=== PATIENT | female | born 1995 | race Caucasian/White ===

== ENCOUNTER 2017-03-05 09:00 | Emergency (ER) | payer BC ==
[~2017-03-05] VITALS: Ht 165.1 cm; Wt 79.6 kg
[~2017-03-05 09:00] MED LIST: ABL/5 PO; ALBUAER2 INH; ATV/1 PO; ESCI1TAB10 PO; METF-383 PO; OMEP40CA41 PO; POLY335040 PO
[2017-03-05 09:04] VITALS: TEMP 37.3; Ht 165.1 cm; Wt 79.6 kg
[2017-03-05] MEDS ORDERED: KETOROLAC TROMETHAMINE 30 MG/ML VIAL IV STA (09:36)
[2017-03-05] MEDS ORDERED: ONDANSETRON INJ 2 MG/ML 2 ML VIAL IV STA (09:36)
[2017-03-05] MEDS ORDERED: SODIUM CHLORIDE 0.9% 500ML 500 ML IV STA (09:36)
[2017-03-05 09:56] LABS: BASO % 1.1 %; BASO ABS # 0.06 K/uL (0-0.2); COMPLETE YES; EOS % 3.2 %; HEMATOCRIT 38.5 % (37-47); IG% 0.2 %; LYMPH % 33.7 %; LYMPH ABS # 1.78 K/uL (1.2-3.4); MEAN CELL VOLUME 73.1 fL (80-100); MEAN CORPUSCULAR HGB CONC 31.4 g/dl (32-36); MEAN PLATELET VOLUME 10.6 fL (7.4-10.4); MONO % 11.4 %; NEUT % 50.4 %; PLATELET COUNT 209 K/uL (130-400); RED BLOOD COUNT 5.27 M/uL (4.2-5.4); WHITE BLOOD COUNT 5.28 K/uL (4.8-10.8)
[2017-03-05] MEDS ORDERED: OPTIRAY 320 IV PRN (10:00)
[2017-03-05 10:05] LABS: URINE APPEARANCE TURBID (CLEAR); URINE BILIRUBIN NEG (NEG); URINE COLOR DK YELLOW; URINE EPITHELIAL CELL AUTO >30 /lpf (0-5); URINE NITRITE NEG (NEG); URINE PH 5.5 (4.5-7.5); UROBILINOGEN NEG (NEG); ZZUR CULT IF INDIC CLEAN CATCH YES
[2017-03-05 10:06] LABS: MANUAL MICROSCOPIC REQUIRED? NO; REVIEW REQ? YES
[2017-03-05] MEDS ORDERED: VNTHFA/IN INH (10:07)
[2017-03-05] MEDS ORDERED: ACET-1256 PO (10:07)
[2017-03-05] MEDS ORDERED: CHOL1000 PO (10:07)
[2017-03-05 10:13] LABS: ALT/SGPT 17 U/L (12-78); AST/SGOT 17 U/L (15-37); BLOOD UREA NITROGEN 10 mg/dl (7-18); BUN/CREATININE RATIO 12.3 (10-20); CALCIUM 8.7 mg/dl (8.5-10.1); CARBON DIOXIDE 24 mmol/L (21-32); CHLORIDE 108 mmol/L (98-107); CREATININE 0.79 mg/dl (0.60-1.20); GLUCOSE 98 mg/dl (70-99); POTASSIUM 3.9 mmol/L (3.5-5.1); SODIUM 139 mmol/L (136-145)
[2017-03-05 10:16] LABS: ALKALINE PHOSPHATASE 97 U/L (45-117)
[2017-03-05] MEDS ORDERED: HYDROmorphone INJ 0.5 MG/0.5 ML SYR IV STA (10:32)
--- NOTE | 2017-03-05 12:13 | DIAGNOSTIC IMAGING REPORT ---
ABD/PELVIS IV CONTRAST ONLY HISTORY: 21 years-old Female lower abd pain w/ iud acute lower abdominal pain with intrauterine device. COMPARISON: CT abdomen and pelvis 09/13/2006 TECHNIQUE: Multiple axial CT images of the abdomen and pelvis were obtained following the intravenous administration of 121 mL Optiray 320. A dose lowering technique was used consistent with the principals of JAMES. FINDINGS: There is mild subsegmental dependent bibasilar atelectasis. No pneumoperitoneum identified. Imaged inferior cardiac chambers are within normal limits in size. The liver, spleen, pancreas, gallbladder and adrenal glands are within normal limits. Common bile duct is mildly dilated at 7 mm without obstructing stone or lesion identified. There is also suggested mild intrahepatic biliary ductal dilation. Kidneys, ureters and urinary bladder are unremarkable. There is an intrauterine device present which appears malpositioned with the T portion projected in an oblique anterior to posterior projection suggesting possible intramural location within the uterine body anteriorly anteriorly as seen on image 351 of series 3. Trace fluid is seen within the endocervical canal. Follicular changes of the ovaries without definite adnexal mass lesion. Abdominal aorta is normal in course and caliber. No bulky adenopathy. There is no bowel obstruction or focal bowel wall thickening identified. Normal appendix. Soft tissues are unremarkable. Bones appear intact. IMPRESSION: 1. Rotated intrauterine device with possible intramural extension into the anterior uterine body as above. Correlate with clinical exam and pelvic ultrasound if clinically indicated. 2. Mild common bile duct dilation of 7 mm is present in conjunction with mild intrahepatic biliary ductal dilation. No obstructing stone or lesion identified. Correlate with biliary function laboratory analysis. 3. Normal appendix. The above report was generated using voice recognition software. It may contain grammatical, syntax or spelling errors. Electronically signed by: Anthony Bullock M.D. 03/05/2017 12:11 PM Dictated Date/Time: 03/05/2017 12:03 PM
[2017-03-05] MEDS ORDERED: LORAZEPAM 1 MG TAB SL STA (12:57)
[2017-03-05 14:07] VITALS: BP 131/76; PULSE 66; O2SAT 96
--- NOTE | 2017-03-05 16:17 | EMERGENCY ROOM VISIT NOTE ---
History Report prepared by Unruly: David Diaz Under the Supervision of: Dr. Jerzy David D.O. First contact with patient: 09:24 Chief Complaint: ABDOMINAL PAIN Stated Complaint: SEVERE ABD PAIN/R LEG NUMB History of Present Illness The patient is a 21 year old female who presents to the Emergency Room with complaints of waxing and waning lower abdominal pain beginning two hours ago. Her pain is worse on the right. She has a history of similar symptoms when she had an IUD placed a few years ago. The patient had an IUD removed and a new one placed last month. She states that she spoke with her [employer] PANELBOARD OPERATOR today about her symptoms who referred her to the ED. She also complains of right leg pain, numbness and tingling. The patient denies urinary symptoms, groin numbness, diarrhea, loss of bowel or bladder continence, or abnormal back pain. Her last normal bowel movement was yesterday. Her LNMP was two weeks ago. The patient notes that she has had some pain in her tailbone for the past several weeks, but this has not changed recently. She denies any recent travel, or surgeries. She has no history of blood clots. Source of History: patient Onset: Two hours ago Position: abdomen (lower, worse on the right) Timing: waxes/wanes Associated Symptoms: No back pain (abnormal), No diarrhea, No urinary symptoms Note: The patient also complains of right leg pain, numbness and tingling. The patient denies groin numbness, or loss of bowel or bladder continence. Review of Systems See HPI for pertinent positives & negatives. A total of 10 systems reviewed and were otherwise negative. Past Medical & Surgical Medical Problems: (1) Depression (2) NARCOLEPSY, WITHOUT CATAPLEXY Family History FH: migraines Social History Smoking Status: Current Every Day Smoker Marital Status: single Housing Status: lives with family Occupation Status: student Current/Historical Medications Scheduled Aripiprazole (Abilify), 7.5 MG PO DAILY Cholecalciferol (Vitamin D3), 1,000 UNITS PO DAILY Escitalopram Oxalate (Lexapro), 20 MG PO DAILY Omeprazole (Prilosec), 40 MG PO DAILY Scheduled PRN Acetaminophen (Tylenol), 1,000 MG PO UD PRN for Pain Albuterol Hfa (Ventolin Hfa), 2 PUFFS INH Q4 PRN for SOB/Wheezing Lorazepam (Ativan), 1 MG PO BID PRN for Anxiety Allergies Coded Allergies: Cephalexin (Verified Allergy, Mild, HIVES, 03/05/17) Morphine (Verified Allergy, Mild, HIVES, 03/05/17) WHEN GETTING IN THE ER, PT'S ARM STARTED TO TURN RED. Penicillins (Verified Allergy, Mild, HIVES, 03/05/17) Physical Exam Vital Signs Date Time Temp Pulse Resp B/P (MAP) Pulse Ox O2 Delivery O2 Flow Rate FiO2 03/05/17 14:07 66 16 131/76 96 03/05/17 13:12 66 16 131/76 96 Room Air 03/05/17 10:32 67 16 113/75 97 Room Air 03/05/17 09:04 37.3 81 18 121/78 97 Room Air Physical Exam GENERAL: Sitting up in bed, holding lower abdomen, minimal distress. EYE EXAM: normal conjunctiva. OROPHARYNX: no exudate, no erythema, lips, buccal mucosa, and tongue normal and mucous membranes are moist NECK: supple, no nuchal rigidity, no adenopathy, non-tender LUNGS: Clear to auscultation. Normal chest wall mechanics HEART: no murmurs, S1 normal and S2 normal ABDOMEN: abdomen soft, normo-active bowel sounds, no masses, no rebound or guarding. Minimal infraumbilical tenderness to palpation. BACK: Back is symmetrical on inspection and there is no deformity, no midline tenderness, no CVA tenderness. SKIN: no rashes and no bruising PELVIC: deferred to WEIGHBRIDGE OPERATOR UPPER EXTREMITIES: upper extremities are grossly normal. LOWER EXTREMITIES: No pitting edema. Flexion and extension of the hip, knee, ankles and EHL 5/5 bilaterally. Patellar and Achilles reflexes intact. DPs 2/4 bilaterally. NEURO EXAM: Normal sensorium, cranial nerves II-XII grossly intact, normal speech, no gross weakness of arms, no gross weakness of legs. Medical Decision & Procedures ER Provider Diagnostic Interpretation: CT:Per my review, radiologist interpretation. ABD/PELVIS IV CONTRAST ONLY FINDINGS: There is mild subsegmental dependent bibasilar atelectasis. No pneumoperitoneum identified. Imaged inferior cardiac chambers are within normal limits in size. The liver, spleen, pancreas, gallbladder and adrenal glands are within normal limits. Common bile duct is mildly dilated at 7 mm without obstructing stone or lesion identified. There is also suggested mild intrahepatic biliary ductal dilation. Kidneys, ureters and urinary bladder are unremarkable. There is an intrauterine device present which appears malpositioned with the T portion projected in an oblique anterior to posterior projection suggesting possible intramural location within the uterine body anteriorly anteriorly as seen on image 351 of series 3. Trace fluid is seen within the endocervical canal. Follicular changes of the ovaries without definite adnexal mass lesion. Abdominal aorta is normal in course and caliber. No bulky adenopathy. There is no bowel obstruction or focal bowel wall thickening identified. Normal appendix. Soft tissues are unremarkable. Bones appear intact. IMPRESSION: 1. Rotated intrauterine device with possible intramural extension into the anterior uterine body as above. Correlate with clinical exam and pelvic ultrasound if clinically indicated. 2. Mild common bile duct dilation of 7 mm is present in conjunction with mild intrahepatic biliary ductal dilation. No obstructing stone or lesion identified. Correlate with biliary function laboratory analysis. 3. Normal appendix. The above report was generated using voice recognition software. It may contain grammatical, syntax or spelling errors. Electronically signed by: Anthony Bullock M.D. 03/05/2017 12:11 PM Laboratory Results 03/05/17 09:42 Red Blood Count 5.27, Mean Corpuscular Volume 73.1, Mean Corpuscular Hemoglobin 23.0, Mean Corpuscular Hemoglobin Concent 31.4, Mean Platelet Volume 10.6, Neutrophils (%) (Auto) 50.4, Lymphocytes (%) (Auto) 33.7, Monocytes (%) (Auto) 11.4, Eosinophils (%) (Auto) 3.2, Basophils (%) (Auto) 1.1, Neutrophils # (Auto ) 2.66, Lymphocytes # (Auto) 1.78, Monocytes # (Auto) 0.60, Eosinophils # (Auto ) 0.17, Basophils # (Auto) 0.06 03/05/17 09:42 Test 03/05/17 09:27 03/05/17 09:42 Urine Color DK YELLOW Urine Appearance TURBID (CLEAR) Urine pH 5.5 (4.5-7.5) Urine Specific Jackson 1.030 (1.000-1.030) Urine Protein 2+ (NEG) Urine Glucose (UA) NEG (NEG) Urine Ketones TRACE (NEG) Urine Occult Blood 3+ (NEG) Urine Nitrite NEG (NEG) Urine Bilirubin NEG (NEG) Urine Urobilinogen NEG (NEG) Urine Leukocyte Esterase SMALL (NEG) Urine WBC (Auto) >30 /hpf (0-5) Urine RBC (Auto) >30 /hpf (0-4) Urine Hyaline Casts (Auto) 1-5 /lpf (0-5) Urine Epithelial Cells (Auto) >30 /lpf (0-5) Urine Bacteria (Auto) 2+ (NEG) Urine Pathogenic Casts /lpf (0) Urine Test NEG (NEG) White Blood Count 5.28 K/uL (4.8-10.8) Red Blood Count 5.27 M/uL (4.2-5.4) Hemoglobin 12.1 g/dL (12.0-16.0) Hematocrit 38.5 % (37-47) Mean Corpuscular Volume 73.1 fL (80-100) Mean Corpuscular Hemoglobin 23.0 pg (25-34) Mean Corpuscular Hemoglobin Concent 31.4 g/dl (32-36) Platelet Count 209 K/uL (130-400) Mean Platelet Volume 10.6 fL (7.4-10.4) Neutrophils (%) (Auto) 50.4 % Lymphocytes (%) (Auto) 33.7 % Monocytes (%) (Auto) 11.4 % Eosinophils (%) (Auto) 3.2 % Basophils (%) (Auto) 1.1 % Neutrophils # (Auto) 2.66 K/uL (1.4-6.5) Lymphocytes # (Auto) 1.78 K/uL (1.2-3.4) Monocytes # (Auto) 0.60 K/uL (0.11-0.59) Eosinophils # (Auto) 0.17 K/uL (0-0.5) Basophils # (Auto) 0.06 K/uL (0-0.2) RDW Standard Deviation 42.3 fL (36.4-46.3) RDW Coefficient of Variation 15.9 % (11.5-14.5) Immature Granulocyte % (Auto) 0.2 % Immature Granulocyte # (Auto) 0.01 K/uL (0.00-0.02) Anion Gap 7.0 mmol/L (3-11) Est Creatinine Clear Calc Drug Dose 119.4 ml/min Estimated GFR () 125.8 Estimated GFR (Non- 108.5 BUN/Creatinine Ratio 12.3 (10-20) Calcium Level 8.7 mg/dl (8.5-10.1) Total Bilirubin 0.2 mg/dl (0.2-1) Direct Bilirubin < 0.1 mg/dl (0-0.2) Aspartate Amino Transf (AST/SGOT) 17 U/L (15-37) Alanine Aminotransferase (ALT/SGPT) 17 U/L (12-78) Alkaline Phosphatase 97 U/L (45-117) Total Protein 7.5 gm/dl (6.4-8.2) Albumin 3.5 gm/dl (3.4-5.0) Lipase 105 U/L (73-393) Laboratory results per my review. Medications Administered Medications (Trade) Dose Ordered Sig/Ryan Route Start Time Stop Time Status Last Admin Dose Admin Sodium Chloride 500 ml @ 999 mls/hr Q31M STAT IV 03/05/17 09:36 03/05/17 10:06 DC 03/05/17 09:52 999 MLS/HR Ketorolac Tromethamine (Toradol Inj) 30 mg NOW STAT IV 03/05/17 09:36 03/05/17 09:37 DC 03/05/17 09:50 30 MG Ondansetron HCl (Zofran Inj) 4 mg NOW STAT IV 03/05/17 09:36 03/05/17 09:37 DC 03/05/17 09:49 4 MG Hydromorphone HCl (Dilaudid Inj) 0.5 mg NOW STAT IV 03/05/17 10:32 03/05/17 10:33 DC 03/05/17 10:38 0.5 MG Lorazepam (Ativan Tab) 1 mg NOW STAT SL 03/05/17 12:57 03/05/17 12:58 DC 03/05/17 13:05 1 MG ED Course ED COURSE: Vital signs were reviewed and appeared normal The patients medical record was reviewed The above diagnostic studies were performed and reviewed. ED treatments and interventions as stated above. 0927: The patient was evaluated in room B8. A complete history and physical examination was performed. 0936: Ordered Zofran Inj 4 mg IV, Toradol Inj 30 mg IV, Sodium Chloride 500 ml @ 999 mls/hr IV. 1032: Ordered Dilaudid Inj 0.5 mg IV. 1130: I reassessed the patient. She is much more comfortable. 1257: Ordered Ativan Tab 1 mg SL. 1348: Upon reevaluation, the patient is resting comfortably. She would like to leave before her US. I discussed my findings with the patient and she understands and agrees with the treatment plan. Based on the patients age, coexisting illnesses, exam and lab findings the decision to treat as an outpatient was made. The patient remained stable while under my care. The patient appeared well at the time of discharge. Medical Decision Differential diagnoses includes but is not limited to gastritis, peptic ulcer disease, GERD, gallbladder disease, pancreatitis, small bowel obstruction, acute coronary syndrome, pericarditis, ischemic bowel, irritable bowel disease, irritable bowel syndrome, appendicitis, diverticulitis, malignancy, hernia, urinary tract infection, torsion, /ectopic , perforation, trauma, infectious. Patient is a 21-year-old female who presents to ER for bilateral lower abdominal cramping which has been coming going. She had an IUD placed and removed previously at the end of January. She follows with [facility] washer machine. Vitals are unremarkable. CBC all BMP, LFTs, bilirubin are all unremarkable. is negative. UA was contaminated with multiple epithelial cells. She has no urinary complaints. Will send for culture. Patient was evaluated by WEIGHBRIDGE OPERATOR following a CT of the abdomen and pelvis which shows an IUD possibly in all of uterus. Discussed with WEIGHBRIDGE OPERATOR attending who placed the IUD and he notes he was placed in the OR. He recommended ultrasound the patient shortly thereafter requested to leave. I informed them of the risk and benefits. I stressed the importance that the IUD could be in the uterine wall which could possibly perforate this was the case. They did understand and were able to explain this back to me. They understood. Mom is a nurse. Patient was discharged following informed refusal of care. Discussed with Pt concerning signs and symptoms to watch out for. Pt was instructed to follow up with their PCP and discussed with the patient their option to return to the ED at anytime for persistent or worsening symptoms. The appropriate anticipatory guidance and out- patient management, including indications for return to the emergency department , were explained at length to the patient and understood. Medication Reconcilliation Current Medication List: was personally reviewed by me Blood Pressure Screening Patient's blood pressure: Normal blood pressure Blood pressure disposition: Did not require urgent referral Consults Time Called: 1220 Consulting Physician: Dr. Oracio BETTENCOURT Returned Call: 1228 I reviewed the patient's case with Dr. Narayanan. He will come see the patient. Impression Primary Impression: Lower abdominal pain Scribe Attestation The scribe's documentation has been prepared under my direction and personally reviewed by me in its entirety. I confirm that the note above accurately reflects all work, treatment, procedures, and medical decision making performed by me. Departure Information Dispostion Home / Self-Care Referrals Chandra Oropeza III, M.D. (PCP) Forms HOME CARE DOCUMENTATION FORM, IMPORTANT VISIT INFORMATION Patient Instructions ED Abdominal Pain Unkn Cause, My [facility] Additional Instructions Please follow up with your primary care doctor and WEIGHBRIDGE OPERATOR with in the next 24 hours. Any worsening of your symptoms, please return to the ED immediately. This includes any fevers greater than 100.4, worsening pain, chest pain, shortness breath, persistent nausea, vomiting, unable to eat or drink, or any other concerning signs or symptoms from your standpoint.
--- NOTE | 2017-03-05 19:20 | GYNECOLOGICAL CONSULTATION ---
DATE OF CONSULTATION: 03/05/2017 Consult is placed by Dr. David from the ER. HISTORY OF PRESENT ILLNESS: This is a 21-year-old G0 who presented to the Emergency Room with lower abdominal pain, pain started this morning and pain radiated to her right leg. Her right leg felt numb, so she called the [employer] RUNNER COMPOUNDER office and was asked to come to the Emergency Room for evaluation. The patient had had an IUD placed under hysteroscopic guidance 6 weeks ago during a D&C hysteroscopy and removal of her previous IUD that was uncomfortable to be removed in the office. The patient has had no pain, or problems or discomfort since IUD placement 6 weeks ago. This pain was sudden and came on this morning. The patient was seen in the Emergency Room and a CT scan ordered. The CT scan showed the IUD in the uterus. The IUD appeared rotated with possible intramural extension to the anterior body. An ultrasound for followup was recommended by the radiologist who read the IUD. I was called to see the patient. On arrival to the patient's room, she was comfortably resting in bed. She appeared to be in no acute pain. She told me her pain had improved. At the time I evaluated her, she ranked her pain 2/10. She had no hematuria. She had no vaginal discharge. The numbness in her right leg has completely resolved. PAST MEDICAL HISTORY: 1. The patient has history of depression. 2. The patient has anxiety. 3. The patient has a history of narcolepsy. PAST SURGICAL HISTORY: D&C. SOCIAL HISTORY: The patient denies tobacco, drug or alcohol use. MEDICATIONS: The patient is on Abilify, vitamin D3, Lexapro and Prilosec. She is also on Ativan p.r.n. ALLERGIES: THE PATIENT IS ALLERGIC TO CEPHALEXIN, MORPHINE AND PENICILLIN. PHYSICAL EXAMINATION: GENERAL: Well-developed, well-nourished white female resting comfortably in bed. VITAL SIGNS: Temperature is 37.3, pulse is 81, respirations 18, blood pressure is 121/78. HEART: S1, S2, regular rhythm and rate. LUNGS: Clear to auscultation bilaterally. ABDOMEN: Nontender, nondistended, positive bowel sounds. There is no guarding, no rebound. PELVIC: Normal female escutcheon. No lesions on the vulva or vagina or cervix. IUD string is seen in the vagina. The stem of the IUD is not seen on the cervical os. EXTREMITIES: No cyanosis, clubbing or edema. ASSESSMENT AND PLAN: A 21-year-old with abdominal pain status post intrauterine device placed 6 weeks ago under hysteroscopic guidance. The patient was seen in the Emergence Room today and a CT scan done that showed that the intrauterine device is possibly in intramural extension. I have discussed the findings of the CT with the patient and family. I ordered an ultrasound because it would give a better visualization of the intrauterine device. The patient and family agreed. The plan was to reevaluate the patient's situation after the ultrasound. We discussed removing the intrauterine device and may be using Nexplanon for control since she continues to have difficulty with the intrauterine device. The patient and family; however, told me they preferred the intrauterine device if it was is in the right position in the uterus. The plan therefore ,as stated above was to leave the intrauterine device in place if ultrasound confirmed proper placement. While the ultrasound was ordered, several hours later I received a phone call from the ER physician who told me that the patient and her family have left and have decided not to do the ultrasound. Therefore, called my office to contact the patient and see if the followup can be done as an outpatient. JN
== END 2017-03-05 14:07 | disposition home or self-care (01) ==
LOC: C.EDB 09:02
DX: R10.30 Lower abdominal pain, unspecified (principal); F32.9 Major depressive disorder, single episode, unspecified; G47.419 Narcolepsy without cataplexy; F17.200 Nicotine dependence, unspecified, uncomplicated; Z97.5 Presence of (intrauterine) contraceptive device; Z79.899 Other long term (current) drug therapy; Z88.0 Allergy status to penicillin; Z88.2 Allergy status to sulfonamides; Z88.8 Allergy status to other drugs, medicaments and biological substances

== ENCOUNTER 2018-09-11 17:44 | Inpatient (IN) ==
[2018-09-11] MEDS ORDERED: LACTATED RINGER'S 1,000 ML IV PRN ×3 (18:20→23:06)
[2018-09-11] MEDS ORDERED: OXYTOCIN 30 UNITS/500 ML BAG IV PRN ×2 (18:20→23:06)
[2018-09-11] MEDS ORDERED: VANCOMYCIN HCL 1,000 MG in SODIUM CHLORIDE 0.9% 250 ML IV STA (18:25)
[2018-09-11] MEDS ORDERED: VANCOMYCIN HCL 1,000 MG in SODIUM CHLORIDE 0.9% 250 ML IV PRN (18:25)
[2018-09-11 18:49] LABS: Hematocrit (blood only) 37.1 % (37-47); Hemoglobin 12.9 g/dL (12.0-16.0); Mean Corpuscular Volume 87.1 fL (80-100); Mean Platelet Volume 11.5 fL (7.4-10.4); Platelet Count 134 K/uL (130-400); RDW Coefficient of Variation 15.8 % (11.5-14.5); RDW Standard Deviation 50.3 fL (36.4-46.3); Red Blood Count 4.26 M/uL (4.2-5.4)
[2018-09-11 18:55] LABS: Mean Corpuscular Hgb Conc 34.8 g/dL (32-36)
[2018-09-11] MEDS: LACTATED RINGER'S 1,000 ML IV SCH ×2 (19:01→22:30)
--- NOTE | 2018-09-11 19:16 | History & Physical Report ---
Date of Service September 11, 2018 Assessment & Plan (1) with 39 completed weeks gestation: fetus category one (2) Normal labor: plan to admit. Will treat with vanco for GBS positive as given as allergic to pcn and ceph. OK by peds. Plan expectant management. pitocin as needed. epidural on demand. Will continue all psych meds. anticipate . History of Present Illness Chief Complaint: contractions, ?lof Primary Care Provider: Chandra Oropeza MD Patient is a 23yowf with iup at 39 3/7 weeks who presents to labor and delivery with complaints of contractions. She notes had last night, painful, but went away. Started again around 3pm. Notes a gush of fluid at about 11. No vb. +fm. complicated by anxiety. Has intermittently taken ativan, last dose 2-3 days ago. Also takes busperone. Also hx of depression on Lexapro and abilify. Patient also takes subutex for addiction treatment. labs--O+/ab-/ri/rprnr/hiv-/hepb-/gc/ct neg/gtt x 2 neg/gbs positive/panorama neg Patient has allergy --hives to cephalosporin and pnc. Allergies Allergy/AdvReac Type Severity Reaction Status Date / Time cephalexin Allergy Mild HIVES Verified 03/05/17 10:08 morphine Allergy Mild HIVES Verified 03/05/17 10:08 Penicillins Allergy Mild HIVES Verified 03/05/17 10:08 Home Medications Home Medications Medication Instructions Recorded Confirmed Type aripiprazole [Abilify] 7.5 mg PO DAILY 08/23/18 08/23/18 History buprenorphine HCl 8 mg SUBLINGUAL BID 08/23/18 08/23/18 History buspirone 10 mg PO BID 08/23/18 08/23/18 History escitalopram oxalate [Lexapro] 20 mg PO DAILY 08/23/18 08/23/18 History ferrous sulfate [iron] 325 mg PO DAILY 08/23/18 08/23/18 History omeprazole magnesium [Prilosec] 40 mg PO DAILY 08/23/18 08/23/18 History Patient History Medical History Anxiety Depression Migraines Surgical History H/O endoscopy History of hysteroscopy History of wisdom tooth extraction Social History Preferred Language: Mexican Communication Ability: Effective Beliefs That Will Affect Care: None marital status: Single Current Living Situation: Alone Current Living Situation Comment: Jerzy Luke FOB/SOB stays there, but not his residence Other Information That Helps Us Care for You: Yes (anxiety) Feels Safe at Home: Yes Smoking Status: Current every day smoker Tobacco Type: cigarettes Cigarettes Per Day: l0 Hx Alcohol Use: No (denies) Hx Substance Use: Yes substance use type: painkillers Substance Use Type Other:: percocet Review of Systems All systems reviewed & are unremarkable except as noted in HPI & below Physical Exam Constitutional: WD/WN, vitals as above Gastrointestinal (Abdomen): soft, nd, gravid Genitourinary: sse--small amount of possible green fluid, +fern, +nitrazine sve--3/90/-2 toco--q3-5min efm--140s with mod variability, small accels, no decels Results & Data Vital Signs (Past 12 Hours) Vital Signs Pulse BP 09/11/18 17:50 83 124/74
[2018-09-11 19:38] LABS: Amphetamines+Metham, Urine Neg (Neg); Barbiturates, Urine Neg (Neg); Benzodiazepine, Urine Neg (Neg); Cocaine, Urine Neg (Neg); MDMA (Ecstacy), Urine Neg (Neg); Methadone, Urine Neg (Neg); Opiate, Urine Neg (Neg); Phencyclidine, Urine Neg (Neg)
[2018-09-11] MEDS ORDERED: DiphenhydrAMINE HCL 50 MG/ML VIAL ONE (19:52)
[2018-09-11] MEDS ORDERED: DiphenhydrAMINE HCL 50 MG/ML VIAL IV STA ×2 (19:59→21:30)
--- NOTE | 2018-09-11 20:33 | Communication Note ---
Date of Service: September 11, 2018 Patient has hx of allergy to pcn and ceph--hives. Agreed to trial vanco. Advised very few allergic reactions to vanco. Unfortunately, no sensitivities to clinda and erythro. Patient had a small amount of the vanco and developed what appeared to be a hive just above the iv site. vanco stopped. Discussed pros and cons of treating with benadryl and trying again. Did discuss that the data supporting vanco, erythro and clinda crossing the placenta and being effective is mixed. Unfortunately, we do not have alot of options and the risk of anapylaxis is likely less than the possiblity of acquiring gbs and mortality associated with it. Mother of the patient is very against her getting the vanco and is quite firm with her about this. Mother asks me mutltiple questions about numbers which I could not answer off the top of my head. I reviewed the CDC policy for GBS prophylaxis and printed this off for her mother. Incidence is 0.34-.037/1000 births and up to 50% mortality if acquires it. Patient was very upset and crying when I entered the room to look at the potential reaction when her mother was in the room When I went back in the room to review the CDC policy, the mother had left and the patient was much calmer. I reviewed the policy and the numbers. I did review again that vanco may not cross placenta in bacterial killing conc entrations. However, in my opinion, I feel it is better than no treatment at all, and the risk of vanco anaphylaxis is small, although the risk is real. she has never demonstrated anaphylaxis to an antibiotic in the past. I have treated with benadryl, the lesion is now gone. On discussing this with the patient and her FOB, she wants to proceed with another trial of vancomycin. I discussed that because we don't have isolates for the clinda/erythromycin and don't know if she has a resistant strain, we are better with vanco which has not shown gbs resistance. Left room and mother coming down the [place], mother asked that we not have these kind of conversations when she and I might disagree in front of her daughter as this exacerbates her anxiety. Gave the patient the CDC recommendations and conversation as above out in the [place] away from the patient. She still would not like to the patient to have it. Ultimately it is the patient's decision. They would like to have a conversation with Dr. Mcintyre the manager advanced. I certainly support that. Can run the vanc in slower and see if better. If the patient declines this standard of care thearpy, I advised her I will be requesting she sign a refusal of treatment form. Patient expressed understanding.
[2018-09-11] MEDS ORDERED: BUPIVACAINE 0.25% 30 ML VIAL ONE (21:24)
[2018-09-11] MEDS ORDERED: fentaNYL 2MCG/ML ROPIV 1.25MG/ML 100 ML BAG EPI ONE (21:24)
[2018-09-11] MEDS ORDERED: fentaNYL citrate 100 MCG/2 ML VIAL ONE (21:24)
[2018-09-11] MEDS ORDERED: ePHEDrine sulfate 50 MG/ML AMP ONE (21:24)
[2018-09-11] MEDS ORDERED: VANCOMYCIN CONSULT ACTIVE PRN (21:32)
[2018-09-11] MEDS ORDERED: VANCOMYCIN HCL 1,000 MG in SODIUM CHLORIDE 0.9% 250 ML IV SCH (21:45)
--- NOTE | 2018-09-11 21:51 | Labor Progress Brief Note ---
Date of Service September 11, 2018 Subjective Patient getting more uncomfortable and breathing through contractions. Assessment & Plan (1) Normal labor: Discussed options since now approaching 10+ hours since rupture and gbs positive. Discussed continued expectant management. Discussed arom+/- pit. discussed could get epidural now and then proceed with arom/pit. Will do latter. (2) GBS (group B Streptococcus carrier), +RV culture, currently : Dr. Mcintyre came to talk to mother, fob, patient's mother. Please see his consult report. He too supports the use of vanco, notes the risk of all phylaxis with vanco is 1/20,000-30,000. He notes the risks of the vanco to the patient are likely outweighed by the benefits of treatment for the baby. discussed how the baby will be treated if there is no treatment ffor gbs or not a full treatment course done. Discussed there are no prospective studies with vancomycin and that is why there isn't enough data. Patient continues to express that she would like to go ahead with vanco. Will run at a reduced rate and treat with another dose of benadryl just before starting. Mother of patient accuses me of threatening her daughter and trying to coerce her to take treatment by having her sign a refusal of treatment form if she declines vanco. Dr. Mcintyre supports the use of a refusal of treatment form in this case as treating for GBS is standard of care. The patient then told the mother that is not what I did, "you are twisting my words", and she is making the decision to proceed with treatment. the patient was again given an opportunity to refuse treatment. She wishes to continue. I took the opportunity to appologise to all in the room as I think we got off on the wrong foot. I reassured the patient that I was not trying to coerce her into any type of treatment, and if she felt that way I was truly sorry. Physical Exam Constitutional: WD/WN, vitals as above Genitourinary: cx--/-2 forebag palpated toco--q2-4min efm--130s wtih mod variability, accels to 150s, no decels Results & Data Vital Signs (Past 12 Hours) Vital Signs Temp Pulse Resp BP Pulse Ox 09/11/18 21:35 87 99 09/11/18 20:21 98.1 F 18 09/11/18 20:20 84 131/83 09/11/18 17:50 83 124/74
--- NOTE | 2018-09-11 21:53 | Pediatric Consultation ---
Date of Consultation September 11, 2018 History of Present Illness Requesting Physician: Dr. Duncan Reason for Consultation: GBS positive, questioning IAP Attending Physician: Darleen Duncan MD, FACOG History of Present Illness Tisha Neely is a 23 YO G1PO admitted to L&D for labor of full term fetus. Her course is complicated by GBS +. I was asked by Dr. Duncan to discuss GBS IAP with mother and maternal grandmother. Of note, patient has PCN allergy with hives (no known anaphylaxis), as well as with cephalosporin. Dr. Duncan discussed option of IAP with vancomycin with myself. We discussed there are no known prospective trails with validation/effectiveness of vancomycin however is its recommended to use vancomycin per CDC guidelines. While infusing vancomycin, patient developed a hive on arm during infusion. This prompted discussion about usefullness of IAP and need for IAP. Dr. Duncan then requested myself to come and discuss information with mother and maternal grandmother. Per CDC 2010 guidelines (Verani et al. Prevention of Group B Streptococcal Disease: Revised Guidelines from CDC, 2010. April 01, 2010 / (RR10);1-32), without use of IAP antibiotics, cases of EOS are 1 out of 200. With adequate IAP, cases of EOS drop to 1 out of 4,000. Discussed with mother and grandmother that before IAP started, incidence 2 per 1,000 of EOS and now has decreased to 0.24 per 1,000. GBS EOS decreased by 80% per CDC report. Discussed limited prospective data with vancomycin, however given lack of other potential antibiotics at this time, I would agree with Dr. Duncan and CDC recommendation that vancomycin would be better than no IAP at this time. Discussed with mother risk of IAP anaphylaxis and range from 4/10,000- 4/100,000. Given risk of potential GBS EOS to is >> than anaphylaxis risk to mother, I discussed my agreeance with Dr. Duncan to continue vancomycin at this time. I discussed my agreeance for pretreatment with benadryl for hives and also slowing rate of infusion, given allergic reaction is due to rate of infusion. Mother in agreeance with this plan and will continue with vancomycin IAP. Will continue to monitor situation and also montior child for sign of EOS after . Allergies Allergy/AdvReac Type Severity Reaction Status Date / Time cephalexin Allergy Mild HIVES Verified 03/05/17 10:08 morphine Allergy Mild HIVES Verified 03/05/17 10:08 Penicillins Allergy Mild HIVES Verified 03/05/17 10:08 Home Medications Home Medications Medication Instructions Recorded Confirmed Type aripiprazole [Abilify] 10 mg PO DAILY 09/11/18 09/11/18 History buprenorphine HCl 2 mg SUBLINGUAL QID 09/11/18 09/11/18 History escitalopram oxalate [Lexapro] 20 mg PO DAILY 09/11/18 09/11/18 History ferrous sulfate [Iron (ferrous 325 mg PO DAILY 09/11/18 09/11/18 History sulfate)] omeprazole magnesium [Prilosec OTC] 20 mg PO DAILY 09/11/18 09/11/18 History Patient History Medical History Anxiety Depression Drug abuse Was abusing pain pills; last used 2015 and on Subutex since IBS (irritable bowel syndrome) Migraines Thyroid disorder issue age 13-17 was on meds but not anymore and has not been checked recently Surgical History H/O endoscopy History of hysteroscopy History of wisdom tooth extraction Social History Preferred Language: Sammarinese Communication Ability: Effective Beliefs That Will Affect Care: None marital status: Single Current Living Situation: Alone Current Living Situation Comment: Jerzy Luke FOB/SOB stays there, but not his residence Other Information That Helps Us Care for You: Yes (anxiety) Feels Safe at Home: Yes Smoking Status: Current every day smoker Tobacco Type: cigarettes Cigarettes Per Day: 10 Do You Dip or Chew Tobacco: No Second Hand Exposure: No Tobacco Cessation Education Requested by Patient: No Hx Alcohol Use: No Hx Substance Use: Yes substance use type: former substance user Substance Use Type Other:: Pain pills Physical Exam Physical Exam: no exam performed during this consultation Results & Data Vital Signs (Past 24 Hours) Temp Pulse Resp BP 09/11/18 20:21 36.7 C 18 09/11/18 20:20 84 131/83 09/11/18 17:50 83 124/74 Medications Administered Lactated Ringer's (Lr) 1,000 mls @ 125 mls/hr IV .Q8H YOLANDE Stop: 09/13/18 18:29 Last Infusion: 09/11/18 19:27 Dose: 125 mls/hr Documented by: [id number] Infusion: 09/11/18 19:02 Dose: 0 mls/hr Documented by: [id number] Admin: 09/11/18 19:01 Dose: 125 mls/hr Documented by: [id number]
[2018-09-11] MEDS ORDERED: ACETAMINOPHEN 325 MG TAB PO STA (22:02)
[2018-09-11] MEDS ORDERED: ACETAMINOPHEN 325 MG TAB ONE (22:03)
[2018-09-11] MEDS ORDERED: fentaNYL 2MCG/ML ROPIV 1.25MG/ML 100 ML BAG EPI PRN (22:23)
[2018-09-11] MEDS ORDERED: ePHEDrine sulfate 50 MG/ML AMP IV PRN (22:23)
[2018-09-11] MEDS ORDERED: NALOXONE HCL 1 MG in SODIUM CHLORIDE 0.9% 1000ML 1,000 ML IV PRN (22:23)
[2018-09-11] MEDS ORDERED: DiphenhydrAMINE HCL 50 MG/ML VIAL IV PRN (22:23)
[2018-09-11] MEDS ORDERED: NALBUPHINE HCL INJ 10 MG/ML AMP IV PRN (22:23)
[2018-09-11] MEDS ORDERED: NALOXONE HCL 0.4 MG/1 ML VIAL/CARP IV PRN (22:23)
--- NOTE | 2018-09-11 22:32 | Anesthesiology Consultation ---
Date of Service September 11, 2018 Assessment & Plan Chart Review Chart Review: Acceptable Risk for Labor Epidural Consults Requested none History Height/Weight Height: 5 ft 5 in Weight: 88.904 kg Allergies Allergy/AdvReac Type Severity Reaction Status Date / Time cephalexin Allergy Mild HIVES Verified 03/05/17 10:08 morphine Allergy Mild HIVES Verified 03/05/17 10:08 Penicillins Allergy Mild HIVES Verified 03/05/17 10:08 Medications Home Medications Medication Instructions Recorded Confirmed Last Taken aripiprazole [Abilify] 10 mg PO DAILY 09/11/18 09/11/18 09/11/18 10:00 buprenorphine HCl 2 mg SUBLINGUAL QID 09/11/18 09/11/18 09/11/18 10:00 escitalopram oxalate [Lexapro] 20 mg PO DAILY 09/11/18 09/11/18 09/11/18 10:00 ferrous sulfate [Iron (ferrous 325 mg PO DAILY 09/11/18 09/11/18 09/11/18 10:00 sulfate)] omeprazole magnesium [Prilosec OTC] 20 mg PO DAILY 09/11/18 09/11/18 09/11/18 10:00 Active Medications Generic Name Dose Route Start Last Admin Trade Name Freq PRN Reason Stop Dose Admin Lactated Ringer's 1,000 mls @ 125 mls/hr 09/11/18 18:30 09/11/18 22:30 Lr IV 09/13/18 18:29 125 mls/hr .Q8H YOLANDE Administration Past Medical History Medical History Anxiety Depression Drug abuse Was abusing pain pills; last used 2015 and on Subutex since IBS (irritable bowel syndrome) Migraines Thyroid disorder issue age 13-15 was on meds but not anymore and has not been checked recently Past Surgical History Surgical History H/O endoscopy History of hysteroscopy History of wisdom tooth extraction Social History Smoking Status: Current every day smoker tobacco type: cigarettes Smoking cigarettes per day: 10 Do You Dip or Chew Tobacco: No Hx Alcohol Use: No Hx Substance Use: Yes substance use type: former substance user Substance Use Type Other:: Pain pills Physical Exam Vital Signs Last Vital Signs Temp 36.7 C 09/11/18 20:21 Pulse 81 09/11/18 22:29 Resp 18 09/11/18 20:21 BP 110/56 L 09/11/18 22:29 Pulse Ox 99 09/11/18 22:28 Testing Laboratory Results 09/11/18 18:34
--- NOTE | 2018-09-11 22:43 | Communication Note ---
Date of Service: September 11, 2018 Vanco running at 75cc/hr (half rate), she feels well, no evidence of hives. no sob. Comfortable with epidural. Patient and FOB in room alone . they appologize to me for what her mother said. She notes that she did not feel threatened or coerced. She is good with the vanco.
--- NOTE | 2018-09-11 23:24 | Labor Progress Brief Note ---
Date of Service September 11, 2018 Subjective comfortable, patient notes she has not noted any hives, no sob/cp. Assessment & Plan (1) GBS (group B Streptococcus carrier), +RV culture, currently : continue slow dosing of vanco. No s/s of recurrent hives or other adverse reaction. (2) Normal labor: arom done and plan pitocin for augmentation. She is agreeable to this plan. Physical Exam Constitutional: WD/WN, vitals as above Genitourinary: cx--/-2 arom--copious amounts of thin green fluid toco--q2-5min efm--140 with mod variability, +accels, no decels Results & Data Vital Signs (Past 12 Hours) Vital Signs Temp Pulse Resp BP Pulse Ox 09/11/18 23:18 84 100 09/11/18 23:13 77 100 09/11/18 23:08 71 98 09/11/18 23:04 72 111/64 09/11/18 23:03 71 99 09/11/18 23:00 18 09/11/18 22:58 86 99 09/11/18 22:53 91 H 98 09/11/18 22:52 88 116/62 09/11/18 22:48 81 98 09/11/18 22:47 69 108/59 L 09/11/18 22:43 77 98 09/11/18 22:42 75 110/59 L 09/11/18 22:38 84 98 09/11/18 22:37 78 116/57 L 09/11/18 22:35 78 113/58 L 09/11/18 22:33 81 115/55 L 99 09/11/18 22:31 88 117/62 09/11/18 22:29 81 110/56 L 09/11/18 22:28 84 99 09/11/18 22:27 85 117/56 L 09/11/18 22:25 83 113/58 L 09/11/18 22:23 83 115/55 L 98 09/11/18 22:21 88 120/59 L 09/11/18 22:19 86 142/84 H 09/11/18 22:18 95 H 98 09/11/18 22:17 98 H 138/80 09/11/18 22:13 84 100 09/11/18 22:08 100 H 100 09/11/18 22:03 92 H 99 09/11/18 21:58 87 99 09/11/18 21:53 99 H 99 09/11/18 21:48 85 100 09/11/18 21:40 99 H 99 09/11/18 21:35 87 99 09/11/18 20:21 98.1 F 18 09/11/18 20:20 84 131/83 09/11/18 17:50 83 124/74
[2018-09-12] MEDS ORDERED: BUPIVACAINE 0.25% 30 ML VIAL ONE (00:55)
[2018-09-12] MEDS ORDERED: fentaNYL citrate 100 MCG/2 ML VIAL ONE ×2 (00:56→03:52)
--- NOTE | 2018-09-12 01:44 | Communication Note ---
Date of Service: September 12, 2018 Resting/asleep after redose of epidural. Vanco infused and no evidence of reaction. efm--140s wtih mod variability, small accels, no decels toco--q1-3min, runs of contractions a/p--continue pitocin. fetus overall reassuring.
--- NOTE | 2018-09-12 03:46 | Labor Progress Brief Note ---
Date of Service September 12, 2018 Subjective Patient has one spot that is very uncomfortable . Assessment & Plan (1) GBS (group B Streptococcus carrier), +RV culture, currently : continue slow dosing of vanco. No s/s of recurrent hives or other adverse reaction. (2) Normal labor: Will redose epidural. Fetus reassuring. anticipate . Physical Exam Constitutional: WD/WN, vitals as above Genitourinary: cx--9/100/0 toco--q1-2min, pit at 5 efm--135 with mod variability, small accels , early decels with some contractions. Results & Data Vital Signs (Past 12 Hours) Vital Signs Temp Pulse Resp BP Pulse Ox 09/12/18 03:41 109 H 124/75 09/12/18 03:38 80 97 09/12/18 03:33 76 96 09/12/18 03:28 76 96 09/12/18 03:25 69 127/73 09/12/18 03:23 80 96 09/12/18 03:18 75 96 09/12/18 03:13 80 96 09/12/18 03:10 86 124/70 94 09/12/18 03:08 79 96 09/12/18 03:03 86 97 09/12/18 02:58 77 97 09/12/18 02:56 78 123/71 09/12/18 02:53 70 96 09/12/18 02:48 69 97 09/12/18 02:43 72 97 09/12/18 02:40 71 118/59 L 09/12/18 02:38 71 96 09/12/18 02:33 73 96 09/12/18 02:28 72 18 96 09/12/18 02:26 72 123/66 09/12/18 02:23 71 96 09/12/18 02:18 71 97 09/12/18 02:13 71 96 09/12/18 02:10 67 117/60 09/12/18 02:08 70 96 09/12/18 02:03 67 97 09/12/18 02:00 98.2 F 18 09/12/18 01:58 70 96 09/12/18 01:55 68 114/59 L 09/12/18 01:53 69 97 09/12/18 01:48 84 97 09/12/18 01:43 81 95 09/12/18 01:40 76 123/64 09/12/18 01:38 74 95 09/12/18 01:33 81 96 09/12/18 01:31 18 09/12/18 01:28 85 96 09/12/18 01:26 74 123/69 09/12/18 01:23 80 96 09/12/18 01:18 82 96 09/12/18 01:13 88 97 09/12/18 01:10 76 125/71 09/12/18 01:08 81 133/72 97 09/12/18 01:06 78 128/67 09/12/18 01:04 80 127/70 09/12/18 01:03 79 97 09/12/18 01:02 85 130/76 09/12/18 01:00 90 18 138/82 09/12/18 00:58 78 135/78 96 09/12/18 00:53 73 97 09/12/18 00:49 71 114/58 L 09/12/18 00:48 80 98 09/12/18 00:43 90 97 09/12/18 00:38 82 96 09/12/18 00:34 83 113/58 L 09/12/18 00:33 89 97 09/12/18 00:30 18 09/12/18 00:28 89 98 09/12/18 00:23 76 97 09/12/18 00:18 77 125/69 97 09/12/18 00:13 81 97 09/12/18 00:08 80 97 09/12/18 00:04 73 126/71 09/12/18 00:03 79 97 09/12/18 00:00 98.4 F 18 09/11/18 23:58 81 97 09/11/18 23:53 78 97 09/11/18 23:49 77 122/68 09/11/18 23:48 76 97 09/11/18 23:43 75 97 09/11/18 23:38 79 98 05 23:34 78 130/71 09/11/18 23:33 77 99 05 23:30 18 09/11/18 23:28 83 99 09/11/18 23:23 84 99 09/11/18 23:20 92 H 106/79 05 23:18 84 100 05/01/19 23:13 77 100 09/11/18 23:08 71 98 09/11/18 23:04 72 111/64 09/11/18 23:03 71 99 09/11/18 23:00 18 09/11/18 22:58 86 99 09/11/18 22:53 91 H 98 09/11/18 22:52 88 116/62 09/11/18 22:48 81 98 09/11/18 22:47 69 108/59 L 09/11/18 22:43 77 98 09/11/18 22:42 75 110/59 L 09/11/18 22:38 84 98 09/11/18 22:37 78 116/57 L 09/11/18 22:35 78 113/58 L 09/11/18 22:33 81 115/55 L 99 09/11/18 22:31 88 117/62 09/11/18 22:29 81 110/56 L 09/11/18 22:28 84 99 09/11/18 22:27 85 117/56 L 09/11/18 22:25 83 113/58 L 09/11/18 22:23 83 115/55 L 98 09/11/18 22:21 88 120/59 L 09/11/18 22:19 86 142/84 H 09/11/18 22:18 95 H 98 09/11/18 22:17 98 H 138/80 09/11/18 22:13 84 100 09/11/18 22:08 100 H 100 09/11/18 22:03 92 H 99 09/11/18 21:58 87 99 09/11/18 21:53 99 H 99 09/11/18 21:48 85 100 09/11/18 21:40 99 H 99 09/11/18 21:35 87 99 09/11/18 20:21 98.1 F 18 09/11/18 20:20 84 131/83 09/11/18 17:50 83 124/74
[2018-09-12] MEDS ORDERED: LIDOCAINE HCL 2% MPF (LOCAL) 5 ML VIAL INFIL ONE (03:52)
[2018-09-12] MEDS: LACTATED RINGER'S 1,000 ML IV SCH (04:25)
[2018-09-12] MEDS ORDERED: SUPERCREAM 0.870% 15 GM JAR EXT PRN (06:36)
[2018-09-12] MEDS ORDERED: HYDROCORTISONE ACETATE 25 MG SUPP PR PRN (06:36)
[2018-09-12] MEDS ORDERED: ACETAMINOPHEN 325 MG TAB PO PRN (06:36)
[2018-09-12] MEDS ORDERED: OXYCODONE/ACETAMINOPHEN 5mg/325mg TAB PO PRN (06:36)
[2018-09-12] MEDS ORDERED: BISACODYL 10 MG SUPP PR PRN (06:36)
[2018-09-12] MEDS ORDERED: BENZOCAINE 20% AER SPR 82.5 GM CAN EXT PRN (06:36)
[2018-09-12] MEDS ORDERED: OXYTOCIN 30 UNITS/500 ML BAG IV PRN (06:36)
[2018-09-12] MEDS ORDERED: DIPHTHERIA/TETANUS/PERTUSSIS 0.5 ML SYR/VIAL IM ONE (06:36)
[2018-09-12 07:43] LABS: CO2 Cord Arterial Blood 63 mmHg (39.1-73.5); HCO3 Cord Arterial Blood 26 mmol/L (19.7-28.5); pH Cord Arterial Blood 7.23 (7.1-7.38)
[2018-09-12 07:49] LABS: Base Excess Cord Venous Blood -2.6 mEq/L (-7.7-1.9); Cord Venous Blood HCO3 24 mmol/L (18.4-26.8); Cord Venous Blood PCO2 48 mmHg (30.4-57.2); Cord Venous Blood PO2 23 mmHg (14.1-43.3); Cord Venous Blood pH 7.32 (7.20-7.44); O2 Saturation Cord Venous Bld < 60.0 % (<68)
[2018-09-12] MEDS ORDERED: ONDANSETRON 4 MG TAB PO PRN (07:53)
--- NOTE | 2018-09-12 08:06 | Anesthesia Procedure Note ---
Date of Service September 12, 2018 Anesthesia Post Epidural Note Vital Signs Vital Signs: Temp Pulse Resp BP Pulse Ox 36.8 C 105 H 18 121/63 96 09/12/18 04:00 09/12/18 07:39 09/12/18 06:39 09/12/18 07:39 09/12/18 07:00 Notes Mental Status: alert / awake / arousable and participated in evaluation Nausea / Vomiting: adequately controlled Pain: adequately controlled Airway Patency, RR, SpO2: stable & adequate BP & HR: stable & adequate Hydration State: stable & adequate Neuraxial Anesthesia: was administered and sensory block is resolving Anesthetic Complications: no major complications apparent and Pt Satisfied with anesthetic care Epidural: Removed without complications and With tip intact
[2018-09-12] MEDS: NICOTINE 21 MG/24 HR TDSY TD SCH (08:31)
--- NOTE | 2018-09-12 08:50 | Delivery Summary ---
DATE OF OPERATION: 09/12/2018 PREOPERATIVE DIAGNOSES: 1. Intrauterine at 39 plus weeks. 2. Early active labor. 3. Rupture of membranes for green meconium fluid. 4. GBS positive status. DISCHARGE DIAGNOSES: 1. Intrauterine at 39 plus weeks. 2. Early active labor. 3. Rupture of membranes for green meconium fluid. 4. GBS positive status. PROCEDURES: 1. Vancomycin for GBS prophylaxis. 2. Epidural anesthesia. 3. AROM and forebag with Pitocin augmentation. 4. Normal spontaneous vaginal delivery. 5. Periclitoral left labial and vaginal lacerations with repair. SURGEON: Darleen Duncan MD ANESTHESIA: Epidural with local infiltration of the perineum with lidocaine. ESTIMATED BLOOD LOSS: 350 mL. DESCRIPTION OF PROCEDURE: The patient presented to labor and delivery with evidence of a small leak of fluid. She had positive ferning and nitrazine. The fluid appeared to be a light green, it was not copious. She was amanda and was 3, 90, and -2. Expectant management was initiated. The patient has allergy to penicillin and cephalosporin causing hives. Decision was made to proceed with vancomycin because the patient did not have sensitivities of her GBS performed to erythromycin and clindamycin. After the vancomycin was running for 20 minutes, she developed one hive right above the IV site. There was a long conversation in regards to proceeding with the vancomycin given the situation and the pros and cons of treatment for GBS and nontreatment for GBS. This was clearly documented in the notes in the patient's chart and I would please have you refer to those. In the end, after consultation with the diesel retrofit designer, she decided to proceed with vancomycin. The vancomycin dose was run at 1/2 the normal rate. She was pretreated with Benadryl and she tolerated this dose of vancomycin very well without further hives and no signs or symptoms of anaphylaxis. After that was taken care of, she was evaluated at approximately 10-11 hours post-rupture and was found to be unchanged. Decision was made at that time to give the patient an epidural and after she was comfortable she had amniotomy of forebag for copious amounts of green meconium-stained fluid. She then underwent Pitocin augmentation that was never greater than 5 milliunits. She progressed spontaneously to complete-complete and +2 station. She did require a couple of redoses of her epidural throughout and she pushed with good effort for approximately an hour for delivery of a viable female infant in CHUNG presentation. The nose and mouth were bulb suctioned. There was no nuchal cord and the rest of the infant was then delivered without difficulty. The fetus was immediately vigorous and crying, so the nose and mouth were again bulb suctioned. I offered the patient to hold the baby, she declined, and so the cord was clamped and cut by the father of the baby and was taken over to the awaiting nurses and pediatricians for drying and attention. Cord blood and gases were obtained. The placenta was delivered spontaneously intact with a 3-vessel cord. Cervix, sulci, rectum, and perineal body were examined and found to be intact. A small vaginal laceration was repaired with 3-0 Vicryl. A small left labial laceration required infiltration with lidocaine for patient discomfort and was sewed with interrupted sutures of 4-0 Vicryl and then a periclitoral tear that was bleeding required 4 interrupted sutures of 4-0 Vicryl. At this, hemostasis was excellent, hemostasis was obtained with dilute Pitocin and fundal massage. Apgars were 8 and 9. Mother and baby doing well at the end of the delivery. I attest to the content of the Intraoperative Record and any orders documented therein. Any exceptions are noted below. CINTHIAD
[2018-09-12] MEDS ORDERED: BUPRENORPHINE HCL 2 MG SUBL SL SCH ×2 (09:00→12:00)
[2018-09-12] MEDS: IBUPROFEN 600 MG TAB PO PRN (09:15)
[2018-09-12] MEDS: ARIPiprazole 10 MG TAB PO SCH (09:18)
[2018-09-12] MEDS: ESCITALOPRAM OXALATE 20 MG TAB PO SCH (09:18)
[2018-09-12] MEDS: DOCUSATE SODIUM 100 MG CAP PO SCH ×2 (09:18→21:58)
[2018-09-12] MEDS: PRENATAL VITAMIN 1 TAB PO SCH (09:21)
[2018-09-12] MEDS: BUPRENORPHINE HCL 2 MG SUBL SL SCH (18:35)
[2018-09-12] MEDS ORDERED: BISACODYL 5 MG TABEC PO ONE (21:56)
[2018-09-13] MEDS: BUPRENORPHINE HCL 2 MG SUBL SL SCH ×4 (05:09→19:03)
[2018-09-13] MEDS ORDERED: ONDANSETRON 4 MG TAB PO PRN (07:48)
--- NOTE | 2018-09-13 08:24 | Obstetrical Progress Note ---
Date of Service <Yuridia Osborne MD - Last Filed: 09/13/18 08:24> September 13, 2018 Assessment & Plan <Yuridia Osborne MD - Last Filed: 09/13/18 08:24> (1) care following vaginal delivery: 23yo with at 39.3 weeks. Hx of Subutex use, anxiety and depression. PPD #1 -Additional 7mg nicoderm patch ordered (already on 21mg) for better craving control -Per pt's request, Zofran increased to 8mg (states she usually takes this dosage for her nausea) -Continue Subutex -Routine care otherwise Subjective <Yuridia Osborne MD - Last Filed: 09/13/18 08:24> Ambulation: ambulating normally Voiding: no voiding problems Passing Gas:: Yes Diet Tolerance:: regular diet Lochia:: Moderate Feeding Type:: bottle feeding Current Pain Level(1-10): 2 Constitutional: no fever and no chills Respiratory: no dyspnea Cardiovascular: no chest pain, no palpitations, no lightheadedness and no calf pain Gastrointestinal: + nausea (had some last night); no vomiting Genitourinary (female): no dysuria Neurologic: no headache(s) Psychiatric: no suicidal ideation Physical Exam <Yuridai Osborne MD - Last Filed: 09/13/18 08:24> Vital Signs (Past 24 Hours) Last Vital Signs Temp 36.8 C 09/13/18 03:30 Pulse 71 09/13/18 03:30 Resp 18 09/13/18 03:30 BP 112/70 09/13/18 03:30 Pulse Ox 98 09/13/18 03:30 Respiratory normal respiratory effort, lungs clear to auscultation Cardiovascular Rate/Rhythm: regular rate and regular rhythm Extremities: no calf tenderness Genitourinary OB Exam Abdomen: + fundal height Fundus: + firm and + relation to umbilicus Results & Data <Yuridia Osborne MD - Last Filed: 09/13/18 08:24> Medications Administered Home Medications aripiprazole [Abilify] 10 mg PO DAILY 09/11/18 [History Confirmed 09/11/18] buprenorphine HCl 2 mg SUBLINGUAL QID 09/11/18 [History Confirmed 09/11/18] escitalopram oxalate [Lexapro] 20 mg PO DAILY 09/11/18 [History Confirmed 09/11/18] ferrous sulfate [Iron (ferrous sulfate)] 325 mg PO DAILY 09/11/18 [History Confirmed 09/11/18] omeprazole magnesium [Prilosec OTC] 20 mg PO DAILY 09/11/18 [History Confirmed 09/11/18] Active Medications Acetaminophen (Tylenol) 650 mg PO Q6H PRN PRN Reason: Pain/BRITO/Fever Stop: 10/12/18 06:35 Aripiprazole (Abilify) 10 mg PO DAILY [facility] Stop: 10/12/18 08:59 Last Admin: 09/12/18 09:18 Dose: 10 mg Documented by: Benzocaine (Dermoplast Pain Relieving [place]) 1 appln EXT PRN PRN PRN Reason: Perineal Discomfort Stop: 10/12/18 06:35 Last Admin: 09/12/18 09:22 Dose: 82.5 appln Documented by: Bisacodyl (Dulcolax) 10 mg [place] DAILY PRN PRN Reason: No BM on 2nd post- day Stop: 10/12/18 06:35 Bisacodyl (Dulcolax) 5 mg PO 2000 [facility] Stop: 09/13/18 20:01 Buprenorphine HCl (Subutex) 0.5 mg SL Q6 [facility] Stop: 10/12/18 17:59 Last Admin: 09/13/18 06:23 Dose: 0.5 mg Documented by: Cocaine HCl (Supercream 0.870%) 1 gm EXT BID PRN PRN Reason: Hemorrhoidal Inflammation Stop: 09/26/18 06:35 Last Admin: 09/12/18 12:25 Dose: 1 appln Documented by: Docusate Sodium (Colace) 100 mg PO BID [facility] Stop: 10/12/18 08:59 Last Admin: 09/12/18 21:58 Dose: 100 mg Documented by: Escitalopram Oxalate (Lexapro) 20 mg PO DAILY [facility] Stop: 10/12/18 08:59 Last Admin: 09/12/18 09:18 Dose: 20 mg Documented by: Hydrocortisone (Anusol Hc) 25 mg [place] BID PRN PRN Reason: Hemorrhoidal Inflammation Stop: 10/12/18 06:35 Ibuprofen (Motrin) 600 mg PO Q4H PRN PRN Reason: Pain/BRITO/Cramping/Fever Stop: 10/12/18 06:35 Last Admin: 09/12/18 09:15 Dose: 600 mg Documented by: Miscellaneous (Remove Nicoderm Patch) 1 ea N/A HS [facility] Stop: 10/12/18 20:59 Last Admin: 09/12/18 22:25 Dose: 1 ea Documented by: Miscellaneous (Remove Nicoderm Patch) 1 ea N/A [facility] Stop: 10/13/18 20:59 Nicotine (Nicoderm Cq) 21 mg TD QAM [facility] Stop: 10/12/18 08:59 Last Admin: 09/12/18 08:31 Dose: 21 mg Documented by: Nicotine (Nicoderm Cq) 7 mg TD QAM [facility] Stop: 10/13/18 08:59 Ondansetron HCl (Zofran) 8 mg PO Q4H PRN PRN Reason: Nausea Stop: 10/12/18 07:52 Oxycodone/Acetaminophen (Percocet 5mg/325mg) 1 tab PO Q4H PRN PRN Reason: Pain not relieved by... Stop: 09/26/18 06:35 Prenat Multivit/[place]/Iron/Folic Ac ( Vitamin) [facility] Stop: 10/12/18 08:59 Last Admin: 09/12/18 09:21 Dose: Not Given Documented by: <Lyla Martell MD, FACOG - Last Filed: 09/13/18 08:45> Co-Signing Physician Notes Resident Physician Supervision Note: I interviewed and examined the patient. Discussed with Dr. Yuridia Osborne and agree with findings and plan as documented in the note. Any exceptions or clarifications are listed here: [None] Documented By: Lyla Martell MD, FACOG
[2018-09-13] MEDS: DOCUSATE SODIUM 100 MG CAP PO SCH ×2 (08:50→20:46)
[2018-09-13] MEDS: ESCITALOPRAM OXALATE 20 MG TAB PO SCH (08:50)
[2018-09-13] MEDS: ARIPiprazole 10 MG TAB PO SCH (08:50)
[2018-09-13] MEDS: NICOTINE 21 MG/24 HR TDSY TD SCH (08:51)
[2018-09-13] MEDS ORDERED: NICOTINE 7 MG/24 HR TDSY TD SCH (09:00)
[2018-09-13] MEDS: PRENATAL VITAMIN 1 TAB PO SCH (13:29)
[2018-09-13] MEDS: IBUPROFEN 600 MG TAB PO PRN (15:26)
[2018-09-13] MEDS ORDERED: POLYETHYLENE (MIRALAX) 17 GM PACK PO PRN (19:36)
[2018-09-13] MEDS ORDERED: POLYETHYLENE (MIRALAX) 17 GM PACK PO ONE (19:57)
[2018-09-13] MEDS ORDERED: BISACODYL 5 MG TABEC PO SCH (20:00)
[2018-09-14] MEDS: BUPRENORPHINE HCL 2 MG SUBL SL SCH ×2 (00:28→06:12)
--- NOTE | 2018-09-14 06:28 | Obstetrical Progress Note ---
Date of Service <Yuridia Osborne MD - Last Filed: 09/14/18 06:34> September 14, 2018 Assessment & Plan <Yuridia Osborne MD - Last Filed: 09/14/18 06:34> (1) care following vaginal delivery: 23yo with at 39.3 weeks. Hx of Subutex use, anxiety and depression. PPD #2 -Pt doing well -Discharge today -Discharge instructions reviewed. -Advised continued use of Subutex. -Will followup with PCP for smoking cessation discussion. -Declined control currently as she states it makes her "emotional" and given propensity for blues/depression will defer discussion further to 6 week followup. -Advised abstinence as possible control for the next 6 weeks until visit given her emotional reaction to hormonal contraception. Subjective <Yuridia Osborne MD - Last Filed: 09/14/18 06:34> Ambulation: ambulating normally Voiding: no voiding problems Diet Tolerance:: regular diet Feeding Type:: bottle feeding Physical Exam <Yuridia Osborne MD - Last Filed: 09/14/18 06:34> Vital Signs (Past 24 Hours) Last Vital Signs Temp 36.4 C L 09/13/18 23:55 Pulse 81 09/13/18 23:55 Resp 18 09/13/18 23:55 BP 119/75 09/13/18 23:55 Pulse Ox 99 09/13/18 15:30 Respiratory normal respiratory effort, lungs clear to auscultation Cardiovascular Rate/Rhythm: regular rate and regular rhythm Extremities: no calf tenderness Genitourinary OB Exam Abdomen: + fundal height Fundus: + firm and + relation to umbilicus (2 above) Results & Data <Yuridia Osborne MD - Last Filed: 09/14/18 06:34> Medications Administered Home Medications aripiprazole [Abilify] 10 mg PO DAILY 09/11/18 [History Confirmed 09/11/18] buprenorphine HCl 2 mg SUBLINGUAL QID 09/11/18 [History Confirmed 09/11/18] escitalopram oxalate [Lexapro] 20 mg PO DAILY 09/11/18 [History Confirmed 09/11/18] ferrous sulfate [Iron (ferrous sulfate)] 325 mg PO DAILY 09/11/18 [History Confirmed 09/11/18] omeprazole magnesium [Prilosec OTC] 20 mg PO DAILY 09/11/18 [History Confirmed 09/11/18] Active Medications Acetaminophen (Tylenol) 650 mg PO Q6H PRN PRN Reason: Pain/BRITO/Fever Stop: 10/12/18 06:35 Aripiprazole (Abilify) 10 mg PO DAILY [facility] Stop: 10/12/18 08:59 Last Admin: 09/13/18 08:50 Dose: 10 mg Documented by: Benzocaine (Dermoplast Pain Relieving [place]) 1 appln EXT PRN PRN PRN Reason: Perineal Discomfort Stop: 10/12/18 06:35 Last Admin: 09/12/18 09:22 Dose: 82.5 appln Documented by: Bisacodyl (Dulcolax) 10 mg [place] DAILY PRN PRN Reason: No BM on 2nd post- day Stop: 10/12/18 06:35 Buprenorphine HCl (Subutex) 0.5 mg SL Q6 [facility] Stop: 10/12/18 17:59 Last Admin: 09/14/18 06:12 Dose: 0.5 mg Documented by: Cocaine HCl (Supercream 0.870%) 1 gm EXT BID PRN PRN Reason: Hemorrhoidal Inflammation Stop: 09/26/18 06:35 Last Admin: 09/12/18 12:25 Dose: 1 appln Documented by: Docusate Sodium (Colace) 100 mg PO BID [facility] Stop: 10/12/18 08:59 Last Admin: 09/13/18 20:46 Dose: 100 mg Documented by: Escitalopram Oxalate (Lexapro) 20 mg PO DAILY [facility] Stop: 10/12/18 08:59 Last Admin: 09/13/18 08:50 Dose: 20 mg Documented by: Hydrocortisone (Anusol Hc) 25 mg [place] BID PRN PRN Reason: Hemorrhoidal Inflammation Stop: 10/12/18 06:35 Ibuprofen (Motrin) 600 mg PO Q4H PRN PRN Reason: Pain/BRITO/Cramping/Fever Stop: 10/12/18 06:35 Last Admin: 09/13/18 15:26 Dose: 600 mg Documented by: Miscellaneous (Remove Nicoderm Patch) 1 ea N/A HS [facility] Stop: 10/12/18 20:59 Last Admin: 09/13/18 20:50 Dose: 1 ea Documented by: Miscellaneous (Remove Nicoderm Patch) 1 ea N/A HS [facility] Stop: 10/13/18 20:59 Last Admin: 09/13/18 20:50 Dose: 1 ea Documented by: Nicotine (Nicoderm Cq) 21 mg TD QAM [facility] Stop: 10/12/18 08:59 Last Admin: 09/13/18 08:51 Dose: 21 mg Documented by: Nicotine (Nicoderm Cq) 7 mg TD QAM [facility] Stop: 10/13/18 08:59 Last Admin: 09/13/18 08:51 Dose: 7 mg Documented by: Ondansetron HCl (Zofran) 8 mg PO Q4H PRN PRN Reason: Nausea Stop: 10/12/18 07:52 Oxycodone/Acetaminophen (Percocet 5mg/325mg) 1 tab PO Q4H PRN PRN Reason: Pain not relieved by... Stop: 09/26/18 06:35 Polyethylene Glycol (Miralax Powder Packet) 17 gm PO DAILY PRN PRN Reason: Constipation Stop: 10/13/18 19:35 Prenat Multivit/[place]/Iron/Folic Ac ( Vitamin) 1 tab PO [facility] Stop: 10/12/18 08:59 Last Admin: 09/13/18 13:29 Dose: Not Given Documented by: <Monica Delgado DO - Last Filed: 09/14/18 06:42> Co-Signing Physician Notes Resident Physician Supervision Note: I was present with the resident physician during the history and exam. I discussed the case with the resident and agree with the findings and plan as documented in the note. Any exceptions or clarifications are listed here: PPD#2 doing well. Discharge today. Instructions reviewed. Documented By: Monica Delgado DO [facility]
[2018-09-14 06:50] LABS: Hematocrit (blood only) 32.6 % (37-47); Hemoglobin 10.9 g/dL (12.0-16.0)
== END 2018-09-14 08:35 | disposition home or self-care (01) | DRG 807 ==
LOC: OPB 17:44 → 4S1 17:44 → 4S2 09-12 11:30

== ENCOUNTER 2021-04-17 08:03 | Inpatient (IN) ==
[2021-04-17] MEDS ORDERED: ceFAZolin 2000MG 2,000 MG/15 ML SYR IV STA (08:08)
[2021-04-17] MEDS ORDERED: OXYTOCIN 30 UNITS/500 ML BAG IV PRN ×2 (08:08→12:17)
[2021-04-17] MEDS ORDERED: fentaNYL citrate 100 MCG/2 ML VIAL ONE (08:10)
[2021-04-17] MEDS ORDERED: BUPIVACAINE 0.25% 30 ML VIAL ONE (08:10)
[2021-04-17] MEDS ORDERED: ePHEDrine sulfate 50 MG/ML AMP ONE (08:10)
[2021-04-17] MEDS ORDERED: SODIUM CHLORIDE 0.9% INJ 10 ML VIAL ONE (08:10)
[2021-04-17] MEDS ORDERED: fentaNYL 2MCG/ML ROPIVACAINE 1.25MG/ML 100 ML BAG EPI ONE (08:11)
[2021-04-17] MEDS: LACTATED RINGER'S 1,000 ML IV PRN ×2 (08:15→10:30)
[2021-04-17] MEDS ORDERED: VANCOMYCIN HCL 1,000 MG in SODIUM CHLORIDE 0.9% 250 ML IV STA (08:19)
[2021-04-17] MEDS ORDERED: VANCOMYCIN CONSULT ACTIVE PRN (08:19)
[2021-04-17 08:26] LABS: Hematocrit (blood only) 34.7 % (37-47); Hemoglobin 11.3 g/dL (12.0-16.0); Mean Corpuscular Hemoglobin 27.8 pg (25-34); Mean Corpuscular Volume 85.5 fL (80-100); Mean Platelet Volume 11.9 fL (7.4-10.4); Platelet Count 165 K/uL (130-400); RDW Coefficient of Variation 13.5 % (11.5-14.5); RDW Standard Deviation 42.1 fL (36.4-46.3); Red Blood Count 4.06 M/uL (4.2-5.4); White Blood Count 11.95 K/uL (4.8-10.8)
[2021-04-17 08:29] LABS: Mean Corpuscular Hgb Conc 32.6 g/dL (32-36)
[2021-04-17] MEDS ORDERED: NALOXONE HCL 1 MG in SODIUM CHLORIDE 0.9% 1000ML 1,000 ML IV PRN (08:32)
[2021-04-17] MEDS ORDERED: ePHEDrine sulfate 50 MG/ML AMP IV PRN (08:32)
[2021-04-17] MEDS ORDERED: ONDANSETRON INJ 2 MG/ML 2 ML VIAL IV PRN (08:32)
[2021-04-17] MEDS ORDERED: fentaNYL 2MCG/ML ROPIVACAINE 1.25MG/ML 100 ML BAG EPI PRN (08:32)
[2021-04-17] MEDS ORDERED: diphenhydrAMINE 50 MG/ML VIAL IV PRN (08:32)
[2021-04-17] MEDS ORDERED: NALOXONE HCL 0.4 MG/1 ML VIAL/CARP IV PRN (08:32)
--- NOTE | 2021-04-17 08:34 | Anesthesiology Consultation ---
Date of Service April 17, 2021 Assessment & Plan (1) Encounter for pre-operative examination: Chart Review Chart Review: Patient NOT seen in Pre Admission Testing and Acceptable Risk for Labor Epidural Consults Requested none History Height/Weight Height: 5 ft 5 in Weight: 87.543 kg Allergies Allergy/AdvReac Type Severity Reaction Status Date / Time cephalexin Allergy Mild HIVES Verified 04/12/21 14:33 morphine Allergy Mild HIVES Verified 04/12/21 14:33 Penicillins Allergy Mild HIVES Verified 04/12/21 14:33 Amoxicillin TABS Allergy Mild Hives Uncoded 04/08/21 05:14 Medications Home Medications Medication Instructions Recorded Confirmed Last Taken aripiprazole 10 mg tablet (Abilify) 15 mg PO DAILY 09/11/18 04/16/21 04/15/21 omeprazole magnesium 20 mg 40 mg PO DAILY 09/11/18 04/16/21 04/15/21 tablet,delayed release (Prilosec OTC) sertraline 50 mg tablet (Zoloft) 50 mg PO DAILY 12/01/20 04/16/21 04/15/21 buprenorphine HCl 8 mg sublingual 8 mg SUBLINGUAL BID 02/23/21 04/16/21 04/16/21 08:00 tablet Active Medications Generic Name Dose Route Start Last Admin Trade Name Freq PRN Reason Stop Dose Admin Lactated Ringer's 1,000 mls @ 125 mls/hr 04/17/21 08:08 04/17/21 08:15 Lr IV 04/19/21 08:07 999 mls/hr .Q8H PRN Administration L&D Protocol Protocol Ropivacaine 100 ml 04/17/21 08:32 04/17/21 09:04 Fentanyl 2mcg/Ml Ropivacaine 1.25mg/Ml 100 Ml Bag EPI 04/18/21 08:31 10 ml PRN PRN Administration Pain R/T Labor Protocol Past Medical History Medical History Anxiety On meds Depression On meds Drug abuse Was abusing pain pills; last used 2015 and on Subutex since and follows with [facility] Dr. Chitra Streeter False labor before 37 completed weeks of gestation IBS (irritable bowel syndrome) Lower abdominal pain Migraines Muscle stiffness Nausea & vomiting Normal labor Pneumomediastinum Pneumomediastinum care following vaginal delivery with 39 completed weeks gestation Right ankle pain Thyroid disorder issue age 13-15 was on meds but not anymore and has not been checked recently Past Family History Family History Mother Bicuspid aortic valve Grandmother (Maternal) Breast cancer Denies family history of Ovarian cancer Prostate cancer Colorectal cancer Past Surgical History Surgical History H/O endoscopy History of hysteroscopy History of wisdom tooth extraction Social History Smoking Status: Current every day smoker tobacco type: cigarettes Smoking cigarettes per day: 10 Hx Alcohol Use: No Hx Substance Use: Yes substance use type: painkillers Substance Use Type Other:: Patient did not use pain killers while . Last use was 2015. Last Used Substance: Unknown Last Used Substance Other:: over five years ago Physical Exam Vital Signs Last Vital Signs Pulse 149 H 04/17/21 08:31 BP 158/104 H 04/17/21 08:25 Pulse Ox 85 L 04/17/21 08:31 Testing Laboratory Results 04/17/21 08:16
--- NOTE | 2021-04-17 08:50 | Labor Progress Brief Note ---
Date of Service April 17, 2021 Subjective 25yo at term presents with contractions Q4-5min screaming in pain. Mother of patient states they are wondering if her water broke last night at 7pm when she felt a gush, but they aren't sure. No VB, good FM. She is checked and found to be 4cm/80/+1 with tight amniotic bag which pops immediately when gently touched, spilling copious clear fluid, and exam then quickly progresses to 5/90/+1. Preg c/b use of subutex, which patient states her current dose as 8mg PO TID and she did not take this morning's dose yet. As it is the weekend, we are unable to confirm dose with her usual prescriber/clinic; our records show 8mg PO BID prior to this point. She also takes Sertraline and Abilify. GBS positivity is noted with PCN and Ancef allergies listed. Assessment & Plan (1) Normal labor and delivery: Plan: Laboring, with SROM during exam. GBS pos and will need vanco due to allergies. Subutex ordered at patient's stated dose. Peds made aware of medications and concerns for transition by nursing. Previous diagnosis of IUGR not applicable to this fetus more recently but is noted. Epidural being provided. Anticipate . Admission and Anticipated Discharge Date Admission Date: April 17, 2021 Physical Exam Constitutional: WD/WN, vitals as above + in distress Eyes: PERRL, conjunctivae normal, anicteric sclerae ENMT: external ear and nose normal, oropharynx normal Neck: supple Respiratory: normal respiratory effort and able to speak in complete sentences; no respiratory distress Cardiovascular: Rate/Rhythm: regular rate and regular rhythm Extremities: + pedal edema Gastrointestinal (Abdomen): Gravid / AGA, nontender Musculoskeletal: no cyanosis or clubbing, extremities motor strength 5/5 Skin: no rashes, warm and dry Neurologic: patellar DTR's 2+ bilat, sensation intact Psychiatric: A+Ox3, euthymic affect Genitourinary: Speculum/Bimanual Exam: no vaginal lesions, no vaginal bleeding and uterus nontender OB Exam Abdomen: + vertex and + estimated weight (7) OB Exam Monitor Tracing: + external FHT monitor used, + external uterine monitor used and + category I Lymphatic: no cervical or axillary lymphadenopathy Results & Data ([facility]) Vital Signs (Past 12 Hours) Vital Signs Pulse BP Pulse Ox 04/17/21 08:36 87 87 L 04/17/21 08:31 149 H 85 L 04/17/21 08:26 96 H 90 04/17/21 08:25 85 158/104 H 04/17/21 08:21 76 96 04/17/21 08:16 82 96 04/17/21 08:15 82 92 04/17/21 08:11 85 98 Coding Level of Care Code None Diagnoses Normal labor and delivery O80
[2021-04-17] MEDS ORDERED: ACETAMINOPHEN 325 MG TAB PO PRN (12:17)
[2021-04-17] MEDS ORDERED: SUPERCREAM 0.870% 15 GM JAR EXT PRN (12:17)
[2021-04-17] MEDS ORDERED: HYDROCORTISONE ACETATE 25 MG SUPP PR PRN (12:17)
[2021-04-17] MEDS ORDERED: DIPHTHERIA/TETANUS/PERTUSSIS 0.5 ML SYR/VIAL IM ONE (12:17)
[2021-04-17] MEDS ORDERED: oxyCODONE/ACETAMINOPHEN 5mg/325mg TAB PO PRN (12:17)
[2021-04-17] MEDS ORDERED: BENZOCAINE 20% AER SPR 82.5 GM CAN EXT PRN (12:17)
--- NOTE | 2021-04-17 12:31 | Delivery Summary ---
Vaginal Delivery Summary Date of Service April 17, 2021 Vaginal Delivery Summary DIAGNOSES: 1. [place] intrauterine at 40w3d gestation. 2. Spontaneous onset of labor. 3. Group B Streptococcus positive, tx with Vancomycin 2/2 allergies 4. Use of high risk medication during 5. Concern for FGR earlier in , with normal growth measurements closer to term 6. Nonreassuring heart tones near complete dilation PROCEDURE: Vacuum Assisted Vaginal Delivery and repair of 2nd degree laceration. SURGEON: Marina Gutierres MD. DENTAL EQUIPMENT REPAIRER: None. ESTIMATED BLOOD LOSS: 300 mL. COMPLICATIONS: None. PLACENTA: Spontaneous and intact with a 3-vessel cord. DISPOSITION: Stable to labor and delivery. DESCRIPTION: I was called to the patient's room due to a heart deceleration. I came promptly from my call room and found FHT in the 80s-90s, with patient in knee-chest. Exam was 8/+1 and fluid was clear. Internal scalp EFM was placed without good tracing; a re-placement was done, with replacement of cable and sticker, and still tracing was unreliable. However, movements were occurring and could be felt with the vaginal examining hand. Patient was repositioned to reattempt listening to heart tones externally. At that time cervical dilation was noted to have already progressed further, to 9cm, mostly in the form of an anterior lip. The patient was beginning to feel urges to push down. heart tones as measured by both external and internal monitors were variably in the 90s or the 150-170s, always with good variability when traced for more than a brief time, and movements continued to be both palpable and visible in the maternal abdomen. Increases in the heart rate were reliably elicited by touching and stimulating the scalp, as well. Concern for acidosis was therefore present, but limited by these reassuring findings at the bedside, despite the concerning appearance of the traced heartbeat which was mostly recording in the 90s between contractions. The maternal pannus did interfere with tracings, especially during contractions or pushes. A bedside ultrasound and maternal pulse oximeter were both used to confirm that the heartbeat was being accurately auscultated. I was unable to r/o tachysystole as the patient's contractions could not be traced well as she was repeatedly repositioned, and palpation of the abdomen suggested contractions as often as Q60-90 seconds; a dose of SQ Terbutaline was given. The patient continued to feel pelvic pressure and at that point was nearly fully dilated with a reducible lip. She is 21yo with a history of a prior fairly quick / easy vaginal delivery, and was so close to delivery, with movements suggesting there was still no acidosis. For all these reasons I elected to continue attempts towards a vaginal delivery, though the patient was warned at several points through the events already described that if reassurance was not able to be obtained on an ongoing basis, a may be indicated urgently. The patient was positioned in lithotomy, a Kiwi was readied on the back table, and position was noted to be DOP with mild extension. The operating room was opened and prepared for possible urgent conversion to , if needed. The patient pushed extremely well, but the descent was still slow. To expedite delivery given the NRFHT, patient was counseled on the risks and benefits of VAVD and consented to Kiwi application. The Kiwi was applied as far posterior on the skull as possible, which was still several cm anterior to the typical flexion point due to the extended DOP presentation of the head. Suction was applied through the "green" pressure zone on the Kiwi. Patient pushed through two further contractions and brought the head to in DOP position. Vacuum was removed. The 's head was allowed to deliver with contraction force and no further active pushing, with the perineum protected during this time. There was no nuchal cord. The shoulders and body delivered very rapidly / without any difficulty, and the infant was placed on the maternal abdomen. It was vigorous and moving all extremities, and making respiratory efforts immediately; cord gases were not obtained given the immediate appearance and behavior indicating a good score. The cord was doubly clamped by the MD and then cut by the mother of the patient. Dr. Mcintyre had been in the room at my request during pushing and was ready to receive the immediately. The placenta delivered spontaneously and was noted to be intact and with a 3VC. The cervix, vagina and perineum were examined and were found to have a small second degree laceration which was repaired with 3-0 vicryl suture.. The fundus was firm and lochia minimal immediately after delivery. [facility] Vaginal Delivery Charge Vaginal Delivery Codes: 25431 global code for the antepartum, delivery, and post- (VACUUM ASSISTED, NOT SPONTANEOUS)
--- NOTE | 2021-04-17 12:44 | Anesthesia Procedure Note ---
Date of Service April 17, 2021 Anesthesia Post Epidural Note Vital Signs Vital Signs: Temp Pulse Resp BP Pulse Ox 36.6 C 100 H 18 130/67 83 L 04/17/21 08:05 04/17/21 12:40 04/17/21 10:10 04/17/21 12:40 04/17/21 11:34 Pain Intensity Abdomen: Pain Intensity: 5 Notes Mental Status: alert / awake / arousable Nausea / Vomiting: adequately controlled Pain: adequately controlled Airway Patency, RR, SpO2: stable & adequate BP & HR: stable & adequate Hydration State: stable & adequate Neuraxial Anesthesia: was administered and sensory block is resolving Anesthetic Complications: no major complications apparent Epidural: Removed without complications and With tip intact
[2021-04-17 13:42] LABS: Amphetamines+Metham, Urine Neg (Neg); Barbiturates, Urine Neg (Neg); Benzodiazepine, Urine Neg (Neg); Cocaine, Urine Neg (Neg); MDMA (Ecstacy), Urine Neg (Neg); Methadone, Urine Neg (Neg); Opiate, Urine Neg (Neg); Phencyclidine, Urine Neg (Neg)
[2021-04-17] MEDS: IBUPROFEN 600 MG TAB PO PRN ×2 (13:55→20:21)
[2021-04-17] MEDS: buprenorphine HCL 8 MG SUBL SL SCH ×4 (13:56→20:21)
[2021-04-17] MEDS ORDERED: ceFAZolin 1000MG 1,000 MG/7.5 ML SYR IV PRN (15:08)
[2021-04-17] MEDS ORDERED: NICOTINE 14 MG/24 HR PATCH TD ONE (17:20)
[2021-04-17] MEDS: DOCUSATE SODIUM 100 MG CAP PO SCH (20:21)
--- NOTE | 2021-04-18 05:59 | Hospitalist Progress Note ---
Date of Service April 18, 2021 Assessment & Plan Admission and Anticipated Discharge Date Admission Date: April 17, 2021 Results & Data Results & Data ([facility]) Vital Signs (Past 12 Hours) Vital Signs Temp Pulse Resp BP Pulse Ox 04/18/21 04:00 36.8 C 89 16 127/90 99 04/18/21 00:00 36.8 C 84 16 127/80 98 04/17/21 19:00 36.7 C 88 16 145/97 H 98
[2021-04-18 06:18] LABS: Hematocrit (blood only) 30.7 % (37-47); Hemoglobin 9.9 g/dL (12.0-16.0); Mean Corpuscular Hemoglobin 27.7 pg (25-34); Mean Corpuscular Hgb Conc 32.2 g/dL (32-36); Mean Platelet Volume 11.9 fL (7.4-10.4); Platelet Count 180 K/uL (130-400); RDW Coefficient of Variation 13.8 % (11.5-14.5); RDW Standard Deviation 42.9 fL (36.4-46.3); Red Blood Count 3.57 M/uL (4.2-5.4); White Blood Count 15.31 K/uL (4.8-10.8)
--- NOTE | 2021-04-18 06:35 | Obstetrical Progress Note ---
Date of Service April 18, 2021 Assessment & Plan (1) Encounter for care and examination after delivery: Plan: 25yo PPD 1 s/p VAVD at 40 weeks -Continue routine care -Vitals reviewed- HDS, afebrile -GBS + tx with vanc due to allergies -Encourage ambulation, regular diet -Pain control with ibuprofen, acetaminophen PRN -Hgb 9.9 -cont. subutex 8mg TID, will call her clinic today to confirm dose -UDS neg -cont. nicotine patch, Abilify, zoloft -will dicuss with CM about discharge Admission and Anticipated Discharge Date Admission Date: April 17, 2021 Supervising Physician Co-Signing Physician Notes Resident Physician Supervision Note: I interviewed and examined the patient. Discussed with Dr. Doyle and agree with findings and plan as documented in the note. Any exceptions or clarifications are listed here: [ ] Documented By: Marina Gutierres MD, FACOG Subjective Ambulation: ambulating normally Voiding: no voiding problems Passing Gas: Yes BM: note yet Diet Tolerance: regular diet Lochia:: Small Feeding Type: bottle feeding Current Pain Level(1-10): 2 near laceration site Pt doing well overall, no acute complaints or distress. Review of Systems Review of Systems: Denies fevers/chills. Denies dyspnea, cough. Denies chest pain. Denies breast pain. Denies dysuria. Denies headache. Denies back pain. Physical Exam Physical Exam: General: Alert, oriented, no acute distress Cardiac: Regular rate and rhythm, normal S1, S2. No murmurs appreciated. Respiratory: Clear to auscultation b/l with good air flow entry, symmetric chest rise and fall. No wheezes or crackles. No increased work of breathing or accessory muscle use Abdomen: Soft, nontender, nondistended. Fundus firm and palpable at umbilicus. No guarding or rebound. Skin: No rashes or lesions Extremities: Warm, dry, well-perfused with capillary refill <2s b/l. No lower extremity edema, erythema or swelling. Negative Hung's sign b/l. Results & Data ([facility]) Vital Signs (Past 12 Hours) Vital Signs Temp Pulse Resp BP Pulse Ox 04/18/21 04:00 36.8 C 89 16 127/90 99 04/18/21 00:00 36.8 C 84 16 127/80 98 04/17/21 19:00 36.7 C 88 16 145/97 H 98 Resident Activity Tracking Resident Involvement: Resident Care Provided Care Provided: OB Delivery
[2021-04-18] MEDS ORDERED: PRENATAL VITAMIN 1 TAB PO SCH (08:00)
[2021-04-18] MEDS: buprenorphine HCL 8 MG SUBL SL SCH ×2 (08:51→15:20)
[2021-04-18] MEDS: DOCUSATE SODIUM 100 MG CAP PO SCH (08:52)
[2021-04-18] MEDS ORDERED: ARIPiprazole 15 MG TAB PO SCH (09:00)
[2021-04-18] MEDS ORDERED: SERTRALINE HCL 50 MG TABLET PO SCH (09:00)
[2021-04-18] MEDS ORDERED: NICOTINE 14 MG/24 HR PATCH TD SCH (09:00)
[2021-04-18] MEDS ORDERED: PANTOprazole 40 MG TAB PO SCH (09:00)
--- NOTE | 2021-04-18 09:36 | Communication Note ---
Date of Service: April 18, 2021 Called Subutex clinic [facility] ([phone]) where Tisha is seen. Confirmed home dose of Subutex 8mg TID sublingually. Resident Activity Tracking Resident Involvement: Resident Care Provided Care Provided: OB Delivery
--- NOTE | 2021-04-18 15:39 | Obstetrical Progress Note ---
Date of Service April 18, 2021 Assessment & Plan (1) Encounter for care and examination after delivery: Plan: Pt continuing to meet all pp milestones, desires dc home and is stable medically. Nursing notes cleared by licensed master social worker and CYS so ok to d/c from social standpoint as well. Discharge instructions reviewed, f/u in 6 wks for pp visit Admission and Anticipated Discharge Date Admission Date: April 17, 2021 Subjective Pt desires discharge. Has been cleared by CYS and licensed master social worker. Tolerating PO, lochia improved, passing flatus. Denies lightheadedness, dizziness, fevers, chills, CP, SOB Physical Exam Respiratory: normal respiratory effort; no respiratory distress and no labored breathing Genitourinary: Fundus firm below umbilicus, NT Results & Data ([facility]) Vital Signs (Past 12 Hours) Vital Signs Temp Pulse Pulse Resp BP Pulse Ox 04/18/21 13:00 98.4 F 86 18 132/82 98 04/18/21 08:15 98.8 F 93 H 18 129/78 98 04/18/21 04:00 98.2 F 89 16 127/90 99 PG Care Time/CCT Total # of Minutes Spent Total Time Spent with Patient: Total time spent is greater than 50% in coordination of care (as documented) at patient's floor/unit and/or counseling patient: Coding Level of Care Code None Diagnoses Encounter for care and examination after delivery Z39.2
--- NOTE | 2021-04-19 15:48 | Discharge Summary ---
Date of Service April 19, 2021 Discharge Data Consultations 04/17/21 08:08 Consult Anesthesiology Stat Procedures Performed Operation Date: 04/17/21 11:00 <No data on this case meets the specified criteria> Hospital Course (1) Encounter for care and examination after delivery: Vaginal delivery, uncomplicated. Pt continuing to meet all pp milestones, desires dc home and is stable medically. Nursing notes cleared by social work lecturer and CYS so ok to d/c from social standpoint as well. Discharge instructions reviewed, f/u in 6 wks for pp visit Coding Level of Care Code None Diagnoses Encounter for care and examination after delivery Z39.2
== END 2021-04-18 16:50 | disposition home or self-care (01) | DRG 807 ==
LOC: OPB 08:03 → 4S1 08:07 → 4S2 14:45